=== PATIENT | female | born 1995 | race Two or more races ===

== ENCOUNTER 2020-08-24 14:20 | Day surgery (SDC) | payer OTHER ==
[~2020-08-24] VITALS: Ht 170.2 cm; Wt 50.3 kg
[2020-08-24] MEDS ORDERED: CYCLOBENZAPRINE5 GM (14:39)
== END 2020-08-25 23:15 | disposition home or self-care (01) ==
LOC: ER 14:20 → CIR.AMB 08-25 14:12
PROVIDERS: ATTEND Obstetrics & Gynecology Obstetrics
DX: O02.1 Missed abortion (principal); Z20.822 Contact with and (suspected) exposure to COVID-19

== ENCOUNTER 2023-10-01 08:50 | Outpatient (CLI) | payer OTHER ==
[~2023-10-01 08:50] MED LIST: CYCLOBENZAPRINE5 GM
== END 2023-10-01 08:53 | disposition home or self-care (01) ==
LOC: PRENATAL 08:50
PROVIDERS: ATTEND Obstetrics & Gynecology Maternal & Fetal Medicine
DX: O35.3XX0 Maternal care for (suspected) damage to fetus from viral disease in mother, not applicable or unspecified (principal); O44.00 Complete placenta previa NOS or without hemorrhage, unspecified trimester; O28.3 Abnormal ultrasonic finding on antenatal screening of mother; O26.879 Cervical shortening, unspecified trimester; Z3A.22 22 weeks gestation of pregnancy